=== PATIENT | female | born 1965 | race Caucasian/White ===

== ENCOUNTER 2020-12-09 12:25 | Emergency (ER) | payer BC ==
[2020-12-09 12:57] VITALS: BP 161/79; PULSE 71; RESP 16; TEMP 98.6
[2020-12-09] MEDS ORDERED: ACET/COD 300 MG/30 MG STARTER PACK 6 TAB BTL PO STA (13:57)
--- NOTE | 2020-12-09 14:01 | ED ---
General Adult HPI - General Chief complaint: Skin/Abscess/Foreign Body Stated complaint: Shingles Time Seen by Provider: 12/09/20 13:28 Source: patient, RN notes reviewed Mode of arrival: ambulatory Limitations: no limitations - History of Present Illness Initial comments: 55-year-old female with a past medical history of hyperlipidemia, hypertension presents to the emergency room for a chief complaint of left low back rash. Patient states she thinks it is shingles. Patient states it is painful. Patient states she has had a rash for about 3 days now. It started Thursday. Patient denies fevers. Patient does not have any history of immunosuppression. States the pharmacist told her to come in for antivirals.Patient has no other complaints at this time including shortness of breath, chest pain, abdominal pain, nausea or vomiting, headache, or visual changes. - Related Data Previous Rx's Medication Instructions Recorded Acyclovir 800 mg PO DIRECTED 7 Days #35 12/09/20 tablet Ibuprofen [Motrin] 600 mg PO Q6HR PRN #20 tab 12/09/20 Lidocaine 5% Patch [Lidoderm 5% 1 patch TOPICAL DAILY PRN #20 patch 12/09/20 Patch] Allergies Allergy/AdvReac Type Severity Reaction Status Date / Time No Known Allergies Allergy Verified 12/09/20 12:57 Review of Systems ROS Statement: Those systems with pertinent positive or pertinent negative responses have been documented in the HPI. ROS Other: All systems not noted in ROS Statement are negative. Past Medical History Past Medical History: Hyperlipidemia, Hypertension, Thyroid Disorder History of Any Multi-Drug Resistant Organisms: None Reported Additional Past Surgical History / Comment(s): carpel tunnel surgery. Past Psychological History: Anxiety Smoking Status: Never smoker Past Alcohol Use History: None Reported Past Drug Use History: None Reported General Exam Limitations: no limitations General appearance: alert, in no apparent distress Head exam: Present: atraumatic Eye exam: Present: normal appearance, PERRL, EOMI. Absent: scleral icterus, conjunctival injection ENT exam: Present: normal exam, mucous membranes moist Neck exam: Present: normal inspection, full ROM. Absent: tenderness Respiratory exam: Present: normal lung sounds bilaterally. Absent: respiratory distress, wheezes Cardiovascular Exam: Present: regular rate, normal rhythm, normal heart sounds GI/Abdominal exam: Present: soft. Absent: distended, tenderness Back exam: Present: other (Erythematous rash in the L1 dermatome consistent with shingles. Small vesicles noted. ) Neurological exam: Present: alert Course Vital Signs 12/09/20 12:55 Temperature 98.6 F Pulse Rate 71 Respiratory 16 Rate Blood Pressure 161/79 O2 Sat by Pulse 96 Oximetry Medical Decision Making - Medical Decision Making Patient has had rash for less than 72 hours. Will be started on acyclovir. We will do Motrin and lidocaine patches for pain. For breakthrough pain she will be given Tylenol 3. She will follow-up with her doctor. Warned her that this can be contagious. She will return here for any worsening symptoms. Disposition Clinical Impression: Shingles Disposition: HOME SELF-CARE Condition: Good Additional Instructions: Please take medications as directed. Follow-up with your doctor on Thursday. Return to the emergency room for any worsening symptoms. Prescriptions: Acyclovir 800 mg PO DIRECTED 7 Days #35 tablet Lidocaine 5% Patch [Lidoderm 5% Patch] 1 patch TOPICAL DAILY PRN #20 patch PRN Reason: Pain Ibuprofen [Motrin] 600 mg PO Q6HR PRN #20 tab PRN Reason: Pain Is patient prescribed a controlled substance at d/c from ED?: No Referrals: Jake Conway MD [Primary Care Provider] - 1-2 days Time of Disposition: 13:58
[2020-12-09] MEDS ORDERED: KETOROLAC 15 MG/ML 1 ML VIAL IM STA (14:12)
== END 2020-12-09 14:24 | disposition home or self-care (01) ==
LOC: EC 12:25
DX: B02.9 Zoster without complications (principal); I10 Essential (primary) hypertension
CPT/HCPCS: 99283; 96372; J1885